=== PATIENT | male | born 1965 | race Caucasian/White ===

== ENCOUNTER 2017-11-13 07:25 | Day surgery (SDC) | payer BC ==
[~2017-11-13] VITALS: Ht 193 cm; Wt 118.2 kg
[2017-11-13] MEDS ORDERED: MEVACOR10 MG PO (07:50)
[2017-11-13 08:10] VITALS: BP 134/85; PULSE 69
[2017-11-13 09:30] VITALS: BP 110/75; PULSE 67; TEMP 98.7
[2017-11-13 09:45] VITALS: BP 121/86; PULSE 66
[2017-11-13 10:00] VITALS: BP 125/81; PULSE 70
== END 2017-11-13 10:10 | disposition home or self-care (01) ==
LOC: SDCO 07:25
DX: K57.92 Diverticulitis of intestine, part unspecified, without perforation or abscess without bleeding (principal); E78.00 Pure hypercholesterolemia, unspecified; Z90.49 Acquired absence of other specified parts of digestive tract; Z83.79 Family history of other diseases of the digestive system
CPT/HCPCS: J2250; J2405; J3010; J7030

== ENCOUNTER 2017-11-24 15:27 | Inpatient (IN) | payer BC ==
[~2017-11-24] VITALS: Ht 193 cm; Wt 117.1 kg
[~2017-11-24 15:27] MED LIST: MEVACOR10 MG PO
[2017-12-02] VITALS (10 sets, daily range): BP systolic 105–150; BP diastolic 46–87; PULSE 73–85; TEMP 98–98.2
[2017-12-02] MEDS ORDERED: CRESTOR20 MG PO (13:02)
[2017-12-02 18:46] LABS: CREATININE, serum 1.43 mg/dL (0.66-1.25); POTASSIUM 3.7 mmol/L (3.4-5.0)
[2017-12-02 18:48] LABS: BASO % 0.1 % (0.0-2.0); EOS % 0.1 % (0-4.0); GRAN # 16.1 (1.4-6.5); GRAN % 92.7 % (42.2-75.2); HEMATOCRIT 44.1 % (42.0-52.0); HEMOGLOBIN 15.5 g/dl (13.5-18.0); LYMPH % 5.6 % (20.0-51.0); MEAN CELL VOLUME 86 fl (80.0-100.0); MEAN CORPUSCULAR HEMOGLOBIN 30 pg (27.0-31.0); MEAN CORPUSCULAR HGB CONC 35 g/dl (33.0-37.0); MEAN PLATELET VOLUME 9.5 fl (7.4-10.4); MONO # 0.2 (0.1-0.6); MONO % 0.9 % (1.7-9.3); PLATELET COUNT 233 K/mm3 (130-400); RED BLOOD COUNT 5.14 M/mm3 (4.20-5.60); REDCELL DISTRIBUTION WIDTH-CV 12.9 % (11.5-14.5)
[2017-12-03 04:00] VITALS: BP 118/66; PULSE 85; TEMP 97.8
[2017-12-03 08:00] VITALS: BP 121/69; PULSE 74; TEMP 97.6
[2017-12-03 11:40] VITALS: BP 114/69; PULSE 64; TEMP 97.3
[2017-12-03 15:52] VITALS: BP 131/72; PULSE 58; TEMP 98.1
[2017-12-03 20:55] VITALS: BP 132/73; PULSE 63; TEMP 97.3
[2017-12-03 23:35] VITALS: BP 106/57; PULSE 71; TEMP 98.2
[2017-12-04 07:27] VITALS: BP 129/81; PULSE 63; TEMP 97.3
[2017-12-04 11:21] VITALS: BP 126/84; PULSE 74; TEMP 98
== END 2017-12-04 14:33 | disposition home or self-care (01) | DRG 331 ==
LOC: INPTSU 12-02 12:43 → SURG 12-02 12:43
PROVIDERS: Surgery
PROC: 8E0W4CZ Robotic Assisted Procedure of Trunk Region, Percutaneous Endoscopic Approach (ICD-10-PCS; 2017-12-02)
PROC: 0DTN4ZZ Resection of Sigmoid Colon, Percutaneous Endoscopic Approach (ICD-10-PCS; principal; 2017-12-02 14:30)
DX: K57.32 Diverticulitis of large intestine without perforation or abscess without bleeding (principal)
CPT/HCPCS: OP; A4314; A9284; J0690; J1100; J1650; J2405; J2704; J2765; J3010; J7120